=== PATIENT | female | born 2000 | race African-American/Black ===

== ENCOUNTER 2020-02-24 16:58 | Emergency (ER) | payer OTHER, BC, SELFPAY ==
[2020-02-24 17:00] VITALS: BP 141/72; PULSE 67; RESP 18; TEMP 36.6; O2SAT 100
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
== END 2020-02-24 18:08 | disposition home or self-care (01) ==
PROVIDERS: Emergency Provider General Practice
DX: S16.1XXA Strain of muscle, fascia and tendon at neck level, initial encounter (principal); V43.52XA Car driver injured in collision with other type car in traffic accident, initial encounter
CPT/HCPCS: 99283